=== PATIENT | male | born 1970 | race Caucasian/White ===

== ENCOUNTER 2021-01-16 18:03 | Emergency (ER) | payer OTHER ==
[2021-01-16] MEDS ORDERED: Sodium Chloride 0.9% 10 ML Syringe FLUSH PRN (18:31)
[2021-01-16] MEDS ORDERED: Ondansetron 4 MG/2 ML SDV IVPUSH ONE (18:31)
[2021-01-16] MEDS ORDERED: Sodium Chloride 0.9% 1,000 ML IV SCH ×2 (18:45→20:00)
--- NOTE | 2021-01-16 18:53 | EDM.PDOC ---
ED HPI GENERAL MEDICAL PROBLEM - General Chief Complaint: Exposure to Heat or Cold Stated Complaint: HEAT EXHAUSTION? Time Seen by Provider: 01/16/21 18:30 Source of Information: Reports: Patient History Limitations: Reports: No Limitations - History of Present Illness INITIAL COMMENTS - FREE TEXT/NARRATIVE: 50-year-old male presenting to the ED for concerns and evaluation of heat exhaustion. Patient states he was working outside repairing heavy equipment and had not been drinking much fluids through the day. He feels lightheaded, dizzy, and very diaphoretic. He has generalized weakness. He had a hard time ambulating when he was filling up his van with fuel. He had a hard time moving from the wheelchair to the bed because of the dizziness. He states that the dizziness is not vertiginous. He is having some light sensitivity though but denies any headache. Although he is morbidly obese he does not have a history of diabetes. Is on medication for blood pressure. He has had nausea and vomiting. He states that this started several hours ago and now he simply dry heaving secondary to the dizziness. He denies any fever but has had chills. - Related Data Allergies Allergy/AdvReac Type Severity Reaction Status Date / Time No Known Allergies Allergy Verified 01/16/21 18:23 Home Meds: Home Meds Cyclobenzaprine [Flexeril] 10 mg PO ASDIRECTED 01/16/21 [History] Sertraline [Zoloft] 150 mg PO ASDIRECTED 01/16/21 [History] allopurinoL [Zyloprim] 500 mg PO ASDIRECTED 01/16/21 [History] buPROPion HCL [Bupropion Xl] 450 mg PO ASDIRECTED 01/16/21 [History] hydrOXYzine HCL [hydrOXYzine] 25 mg PO ASDIRECTED 01/16/21 [History] lisinopriL [Lisinopril] 30 mg PO ASDIRECTED 01/16/21 [History] Social & Family History - Tobacco Use Tobacco Use Status *Q: Heavy Tobacco User Years of Tobacco use: 25 Packs/Tins Daily: 1 - Recreational Drug Use Recreational Drug Use: No ED ROS GENERAL - Review of Systems Review Of Systems: See Below Constitutional: Reports: Chills, Malaise, Weakness, Diaphoresis HEENT: Reports: Vision Change (Photophobia) Respiratory: Reports: No Symptoms Cardiovascular: Reports: Lightheadedness Endocrine: Reports: Fatigue GI/Abdominal: Reports: Nausea, Vomiting : Reports: No Symptoms Musculoskeletal: Reports: No Symptoms Skin: Reports: Diaphoresis Neurological: Reports: Dizziness, Difficulty Walking, Weakness Psychiatric: Reports: No Symptoms Hematologic/Lymphatic: Reports: No Symptoms Immunologic: Reports: No Symptoms ED EXAM, GENERAL - Physical Exam Exam: See Below Exam Limited By: No Limitations General Appearance: Alert, Anxious, Mild Distress Eye Exam: Bilateral Eye: EOMI, PERRL Throat/Mouth: Normal Inspection, Normal Oropharynx, Normal Voice, No Airway Compromise Head: Atraumatic, Normocephalic Neck: Normal Inspection, Supple. No: Lymphadenopathy (R), Lymphadenopathy (L) Respiratory/Chest: No Respiratory Distress, Lungs Clear, Normal Breath Sounds Cardiovascular: Normal Peripheral Pulses, Regular Rate, Rhythm, No Murmur. No: Tachycardia Peripheral Pulses: 2+: Radial (L), Radial (R) GI/Abdominal: Soft, Non-Tender, Abnormal Bowel Sounds (Diminished bowel sounds) Extremities: Normal Inspection, Normal Range of Motion, Normal Capillary Refill Neurological: Alert, Oriented, CN II-XII Intact, Normal Cognition, No Motor/Sensory Deficits Psychiatric: Anxious Skin Exam: Diaphoretic Course - Vital Signs Last Recorded V/S: Last Vital Signs Temp 35.3 C L 01/16/21 18:20 Pulse 83 01/16/21 21:53 Resp 17 01/16/21 19:56 BP 133/77 01/16/21 21:53 Pulse Ox 95 01/16/21 21:53 - Orders/Labs/Meds Orders: Active Orders 24 hr Category Date Time Status Sodium Chloride 0.9% [Normal Saline] 1,000 ml Med 01/16/21 18:45 Active IV ASDIRECTED Sodium Chloride 0.9% [Normal Saline] 1,000 ml Med 01/16/21 20:00 Active IV ASDIRECTED Sodium Chloride 0.9% [Saline Flush] Med 01/16/21 18:31 Active 10 ml FLUSH ASDIRECTED PRN Saline Lock Insert [OM.PC] Routine Oth 01/16/21 18:31 Ordered Medication Orders Sodium Chloride (Normal Saline) 1,000 mls @ 999 mls/hr IV ASDIRECTED MERISSA Last Admin: 01/16/21 19:52 Dose: 999 mls/hr Documented by: [facility] Sodium Chloride (Normal Saline) 1,000 mls @ 999 mls/hr IV ASDIRECTED MERISSA Last Admin: 01/16/21 20:54 Dose: 999 mls/hr Documented by: [facility]MA Sodium Chloride (Sodium Chloride 0.9% 10 Ml Syringe) 10 ml FLUSH ASDIRECTED PRN PRN Reason: Keep Vein Open Last Admin: 01/16/21 19:52 Dose: 10 ml Documented by: UMA Labs: Laboratory Tests 01/16/21 01/16/21 01/16/21 Range/Units 18:50 18:50 18:50 WBC 15.1 H (4.5-11.0) K/uL RBC 4.87 (4.30-5.90) M/uL Hgb 15.0 (12.0-15.0) g/dL Hct 43.8 (40.0-54.0) % MCV 90 (80-98) fL MCH 31 (27-31) pg MCHC 34 (32-36) % Plt Count 211 (150-400) K/uL Neut % (Auto) 81.9 H (36-66) % Lymph % (Auto) 8.8 L (24-44) % Giles % (Auto) 8.0 H (2-6) % Eos % (Auto) 0.9 L (2-4) % Baso % (Auto) 0.4 (0-1) % Sodium 141 (140-148) mmol/L Potassium 4.7 (3.6-5.2) mmol/L Chloride 102 (100-108) mmol/L Carbon Dioxide 26 (21-32) mmol/L Anion Gap 13.1 (5.0-14.0) mmol/L BUN 15 (7-18) mg/dL Creatinine 1.3 (0.8-1.3) mg/dL Est Cr Clr Drug Dosing 73.21 mL/min Estimated GFR (MDRD) 59 L (>60) Glucose 102 (74-106) mg/dL Lactic Acid 3.5 H (0.4-2.0) mmol/L Calcium 9.6 (8.5-10.1) mg/dL Magnesium 1.8 (1.8-2.4) mg/dL Creatine Kinase (39-308) U/L Troponin I < 0.017 (0.000-0.056) ng/mL Urine Color (YELLOW) Urine Appearance (CLEAR) Urine pH (5.0-8.0) Ur Specific Lutz (1.008-1.030) Urine Protein (NEGATIVE) mg/dL Urine Glucose (UA) (NEGATIVE) mg/dL Urine Ketones (NEGATIVE) mg/dL Urine Occult Blood (NEGATIVE) Urine Nitrite (NEGATIVE) Urine Bilirubin (NEGATIVE) Urine Urobilinogen (0.2-1.0) EU/dL Ur Leukocyte Esterase (NEGATIVE) Urine RBC (0-5) Urine WBC (0-5) Ur Epithelial Cells Amorphous Sediment Urine Bacteria Urine Mucus 01/16/21 01/16/21 Range/Units 18:50 21:41 WBC (4.5-11.0) K/uL RBC (4.30-5.90) M/uL Hgb (12.0-15.0) g/dL Hct (40.0-54.0) % MCV (80-98) fL MCH (27-31) pg MCHC (32-36) % Plt Count (150-400) K/uL Neut % (Auto) (36-66) % Lymph % (Auto) (24-44) % Giles % (Auto) (2-6) % Eos % (Auto) (2-4) % Baso % (Auto) (0-1) % Sodium (140-148) mmol/L Potassium (3.6-5.2) mmol/L Chloride (100-108) mmol/L Carbon Dioxide (21-32) mmol/L Anion Gap (5.0-14.0) mmol/L BUN (7-18) mg/dL Creatinine (0.8-1.3) mg/dL Est Cr Clr Drug Dosing mL/min Estimated GFR (MDRD) (>60) Glucose (74-106) mg/dL Lactic Acid (0.4-2.0) mmol/L Calcium (8.5-10.1) mg/dL Magnesium (1.8-2.4) mg/dL Creatine Kinase 788 H (39-308) U/L Troponin I (0.000-0.056) ng/mL Urine Color Yellow (YELLOW) Urine Appearance Clear (CLEAR) Urine pH 6.0 (5.0-8.0) Ur Specific Lutz 1.020 (1.008-1.030) Urine Protein Negative (NEGATIVE) mg/dL Urine Glucose (UA) Negative (NEGATIVE) mg/dL Urine Ketones Negative (NEGATIVE) mg/dL Urine Occult Blood Negative (NEGATIVE) Urine Nitrite Negative (NEGATIVE) Urine Bilirubin Negative (NEGATIVE) Urine Urobilinogen 0.2 (0.2-1.0) EU/dL Ur Leukocyte Esterase Negative (NEGATIVE) Urine RBC 0-5 (0-5) Urine WBC 0-5 (0-5) Ur Epithelial Cells Rare Amorphous Sediment Not seen Urine Bacteria Rare Urine Mucus Few Meds: Medications Generic Name Dose Route Start Last Admin Trade Name Freq PRN Reason Stop Dose Admin Sodium Chloride 1,000 mls @ 999 mls/hr 01/16/21 18:45 01/16/21 19:52 Normal Saline IV 999 mls/hr ASDIRECTED MERISSA Administration Sodium Chloride 1,000 mls @ 999 mls/hr 01/16/21 20:00 01/16/21 20:54 Normal Saline IV 999 mls/hr ASDIRECTED MERISSA Administration Sodium Chloride 10 ml 01/16/21 18:31 01/16/21 19:52 Sodium Chloride 0.9% 10 Ml Syringe FLUSH 10 ml ASDIRECTED PRN Administration Keep Vein Open Discontinued Medications Generic Name Dose Route Start Last Admin Trade Name Freq PRN Reason Stop Dose Admin Ondansetron HCl 4 mg 01/16/21 18:31 01/16/21 19:52 Ondansetron 4 Mg/2 Ml Sdv IVPUSH 01/16/21 18:32 4 mg ONETIME ONE Administration - Re-Assessments/Exams Free Text/Narrative Re-Assessment/Exam: 01/16/21 21:53 I reviewed the patient's labs showing a leukocyte count of 15.1 with a left shift. His hemoglobin is 15.0 with a hematocrit of 43.8 and a platelet count of 211,000. His basic metabolic profile shows a sodium 141, potassium 4.7, chloride of 102, bicarbonate of 26, BUN of 15 with a creatinine of 1.3 and a glucose of 102. His creatinine kinase is 788 and his lactate is 3.5. The troponin is less than 0.017. The elevated creatinine and lactate are likely due to over stress of the muscles and heat prostration. The patient received several liters of IV normal saline with improvement in his symptoms. The leukocytosis is likely demargination from stress response. There were no signs of infection with the patient. He was afebrile and had a normal heart rate. He is normotensive as well. Urinalysis was obtained and is unremarkable. At this time, the patient is suitable for discharge home. He is encouraged to continue to push fluids. Indications to return to the ED were discussed. Departure - Departure Time of Disposition: 21:56 Disposition: Home, Self-Care 01 Clinical Impression: Dehydration Heat prostration due to water depletion Qualifiers: Encounter type: initial encounter Qualified Code(s): T67.3XXA - Heat exhaustion, anhydrotic, initial encounter Nausea and vomiting Qualifiers: Vomiting type: unspecified Vomiting Intractability: intractable Qualified Code(s): R11.2 - Nausea with vomiting, unspecified - Discharge Information Instructions: Dehydration, Adult, [id number], Preventing Heat Exhaustion, Adult Referrals: PCP,None [Primary Care Provider] - Forms: ED Department Discharge Care Plan Goals: Your work-up today has shown that she did have heat prostration due to de hydration. Continue to push Gatorade or electrolyte rich fluids over the next couple of days to replete your stores. Make sure that she take time out of your heavy working to stay hydrated. You will likely be much more sore tomorrow as your body starts to adapt back to normal state. Sepsis Event Note (ED) - Evaluation Sepsis Screening Result: No Definite Risk - Focused Exam Vital Signs: Vital Signs Temp Pulse Resp BP Pulse Ox 01/16/21 21:53 83 133/77 95 01/16/21 20:42 78 114/68 92 L 01/16/21 19:56 76 17 115/72 94 L 01/16/21 18:20 35.3 C L 84 24 H 132/75 98 01/16/21 18:19 35.3 C L 84 24 H 132/75 98 - Problem List & Annotations (1) Dehydration SNOMED Code(s): 00920635 Code(s): E86.0 - DEHYDRATION Status: Acute Priority: Medium Current Visit: Yes (2) Heat prostration due to water depletion SNOMED Code(s): 208128885 Code(s): T67.3XXA - HEAT EXHAUSTION, ANHYDROTIC, INITIAL ENCOUNTER Status: Acute Priority: Medium Current Visit: Yes Qualifiers: Encounter type: initial encounter Qualified Code(s): T67.3XXA - Heat exhaustion, anhydrotic, initial encounter (3) Nausea and vomiting SNOMED Code(s): 43017397 Code(s): R11.2 - NAUSEA WITH VOMITING, UNSPECIFIED Status: Acute Priority: Medium Current Visit: Yes Qualifiers: Vomiting type: unspecified Vomiting Intractability: intractable Qualified Code(s): R11.2 - Nausea with vomiting, unspecified - Problem List Review Problem List Initiated/Reviewed/Updated: Yes - My Orders Last 24 Hours: My Active Orders 01/16/21 18:31 Sodium Chloride 0.9% [Saline Flush] 10 ml FLUSH ASDIRECTED PRN Saline Lock Insert [OM.PC] Routine 01/16/21 18:45 Sodium Chloride 0.9% [Normal Saline] 1,000 ml IV ASDIRECTED 01/16/21 20:00 Sodium Chloride 0.9% [Normal Saline] 1,000 ml IV ASDIRECTED - Assessment/Plan Last 24 Hours: My Active Orders 01/16/21 18:31 Sodium Chloride 0.9% [Saline Flush] 10 ml FLUSH ASDIRECTED PRN Saline Lock Insert [OM.PC] Routine 01/16/21 18:45 Sodium Chloride 0.9% [Normal Saline] 1,000 ml IV ASDIRECTED 01/16/21 20:00 Sodium Chloride 0.9% [Normal Saline] 1,000 ml IV ASDIRECTED
== END 2021-01-16 22:14 | disposition home or self-care (01) ==
LOC: JP.ED 18:03
DX: T67.3XXA Heat exhaustion, anhydrotic, initial encounter (principal); E86.0 Dehydration; R11.2 Nausea with vomiting, unspecified; Z72.0 Tobacco use; Z79.899 Other long term (current) drug therapy
CPT/HCPCS: 36415; 80048; 81001; 82550; 83605; 83735; 84484; 85025; 96374; 99284; J2405; J7030

== ENCOUNTER 2024-09-20 10:47 | Emergency (ER) | payer MEDICARE, MEDICAID ==
[2024-09-20] MEDS: Lidocaine 2% 5 ML SDV INJECT ONE (11:57)
== END 2024-09-20 12:54 | disposition home or self-care (01) ==
LOC: JP.ED 10:47
DX: S81.812A Laceration without foreign body, left lower leg, initial encounter (principal); I10 Essential (primary) hypertension; Z79.899 Other long term (current) drug therapy; W29.3XXA Contact with powered garden and outdoor hand tools and machinery, initial encounter; Y93.89 Activity, other specified
CPT/HCPCS: 12002; 99283; J2003

== ENCOUNTER 2024-11-15 01:50 | Emergency (ER) | payer MEDICARE, MEDICAID ==
[2024-11-15] MEDS: Lactated Ringers 1,000 ML IV ONE (02:14)
[2024-11-15 02:20] LABS: BASOPHILS ABSOLUTE AUTO 0.11 K/uL (0.00-0.10); BASOPHILS PERCENT AUTO 0.8 % (0.1-1.3); EOSINOPHILS ABSOLUTE AUTO 1.86 K/uL (0.00-0.40); EOSINOPHILS PERCENT AUTO 13.0 % (0.0-5.4); IMMATURE GRAN ABSOLUTE AUTO 0.08 K/uL (0.00-0.23); IMMATURE GRAN PERCENT AUTO 0.6 % (0.0-0.7); LYMPHOCYTES ABSOLUTE AUTO 1.69 K/uL (0.8-3.3); LYMPHOCYTES PERCENT AUTO 11.8 % (11.4-47.7); MONOCYTES ABSOLUTE AUTO 0.82 K/uL (0.20-0.90); MONOCYTES PERCENT AUTO 5.7 % (3.3-12.6); NEUTROPHILS ABSOLUTE AUTO 9.73 K/uL (1.0-7.6); NEUTROPHILS PERCENT AUTO 68.1 % (40.0-78.1); PLATELET COUNT,PLT 210 K/uL (130-375); RED BLOOD CELL COUNT 4.07 M/uL (4.14-5.76); WHITE BLOOD CELL COUNT,WBC 14.3 K/uL (3.2-11.0)
[2024-11-15 02:36] LABS: BLOOD UREA NITROGEN,BUN 16.0 mg/dL (7-18); CARBON DIOXIDE,CO2 29.0 mmol/L (21-32); CHLORIDE,CL 103.0 mmol/L (100-108); CREATININE 0.9 mg/dL (0.8-1.3); EST CRCL DRUG DOSING (CG) 101.1 mL/min; ESTIMATED GFR 102.0 mL/min (>60); GLUCOSE RANDOM 98.0 mg/dL (74-106); POTASSIUM,K 3.9 mmol/L (3.6-5.2); SODIUM,NA 140.0 mmol/L (140-148)
== END 2024-11-15 03:12 | disposition home or self-care (01) ==
LOC: JP.ED 01:50
DX: R56.9 Unspecified convulsions (principal); I10 Essential (primary) hypertension; Z79.899 Other long term (current) drug therapy
CPT/HCPCS: 36415; 80048; 83605; 85025; 96360; 99285; J7120; 99283